=== PATIENT | male | born 1980 | race Caucasian/White ===

== ENCOUNTER → 2019-04-25 | Outpatient (CLI) | payer MEDICAID ==
--- NOTE | 2019-04-26 08:54 | XCELERA REPORT ---
[address] [facility] [address] Lower Extremity Venous Evaluation Procedure: Color flow and duplex imaging bilaterally of the veins of the lower extremities as well as the Common Femoral veins. Right Sided Venous Evaluation Normal vessel filling wall to wall, compression and augmentation as well as Colour flow down to the infrageniculate veins. Left Sided Venous Evaluation Normal vessel filling wall to wall, compression and augmentation as well as Colour flow down to the infrageniculate veins. Interpretation Summary No duplex evidence of DVT or obstruction in the bilateral lower extremities. Name: EULALIA SAUNDERS Age: 39 yrs Gender: Male : 1980 Patient Status: Outpatient Patient Location: Study Date: 04/25/2019 05:44 PM Reason For Study: BLE EDEMA Ordering Physician: JOSE PIERCE Performed By: Anita Ponce : JOSE PIERCE > Jair Delgado
== END ==
LOC: SP 17:32
PROVIDERS: ATTEND Physician Assistant
DX: R60.9 Edema, unspecified (principal)
CPT/HCPCS: 93970

== ENCOUNTER 2020-10-18 11:46 | Emergency (ER) | payer MEDICAID ==
--- NOTE | 2020-10-18 13:19 | ER Document Report ---
ED Medical Screen (RME) - General Chief Complaint: Abdominal Pain Stated Complaint: ABDOMINAL PROBLEM Time Seen by Provider: 10/18/20 13:12 Primary Care Provider: JOSE PIERCE PA-C [Primary Care Provider] - Follow up as needed Mode of Arrival: Ambulatory Information source: Patient Notes: HPI; 40-year-old male presents to the emergency room complaining of left upper quadrant pain that has been intermittent for the past 3 days. Also complains of some fluttering in his chest. Denies any nausea or vomiting. No fevers. No urinary symptoms. States he has taken Pepto-Bismol without relief. On chronic pain medication which is not helping with his symptoms. Denies any cardiac history. PE: Alert and oriented x3. Lungs: Clear to auscultation without rales, rhonchi, wheezes. Heart: Tachycardic without murmurs, rubs, gallops. I have greeted and performed a rapid initial assessment of this patient. A comprehensive ED assessment and evaluation of the patient, analysis of test results and completion of the medical decision making process will be conducted by additional ED providers. I have specifically instructed the patient or family members with the patient to immediately return to any nursing staff should anything change in the patient's condition or with their chief complaint. TRAVEL OUTSIDE OF THE [place] IN LAST 30 DAYS: No - Related Data Allergies/Adverse Reactions: No Known Allergies Allergy (Verified 10/18/20 13:10) Home Medications: oxycodone. tizanidine Physical Exam - Vital signs Vitals: Temp Pulse Resp BP Pulse Ox 98.8 F 113 H 16 146/100 H 99 10/18/20 11:54 10/18/20 11:54 10/18/20 11:54 10/18/20 11:54 10/18/20 11:54 Course - Vital Signs Vital signs: Temp Pulse Resp BP Pulse Ox 98.8 F 113 H 16 146/100 H 99 10/18/20 11:54 10/18/20 11:54 10/18/20 11:54 10/18/20 11:54 10/18/20 11:54 Doctor's Discharge - Discharge Referrals: JOSE PIERCE PA-C [Primary Care Provider] - Follow up as needed
--- NOTE | 2020-10-18 13:49 | RADIOLOGY REPORT (SQ) ---
EXAM DESCRIPTION: CHEST 2 VIEWS IMAGES COMPLETED DATE/TIME: 10/18/2020 1:27 pm REASON FOR STUDY: chest pain COMPARISON: None. EXAM PARAMETERS: NUMBER OF VIEWS: two views TECHNIQUE: Digital Frontal and Lateral radiographic views of the chest acquired. RADIATION DOSE: NA LIMITATIONS: none FINDINGS: LUNGS AND PLEURA: No opacities, masses or pneumothorax. No pleural effusion. MEDIASTINUM AND HILAR STRUCTURES: No masses or contour abnormalities. HEART AND VASCULAR STRUCTURES: Heart normal size. No evidence for failure. BONES: No acute findings. HARDWARE: None in the chest. OTHER: No other significant finding. IMPRESSION: 1. NO ACUTE RADIOGRAPHIC FINDING IN THE CHEST. TECHNICAL DOCUMENTATION: JOB ID: [id number] 2010 [employer]- All Rights Reserved Reading location - IP/workstation name: [email or web address]
[2020-10-18 14:23] LABS: ABSOLUTE BASOPHILS # (AUTO) 0.1 10^3/uL (0.0-0.2); ABSOLUTE EOSINOPHILS # (AUTO) 0.1 10^3/uL (0.0-0.6); ABSOLUTE LYMPHOCYTES (AUTO) 1.5 10^3/uL (0.5-4.7); ABSOLUTE MONOCYTES (AUTO) 0.5 10^3/uL (0.1-1.4); ABSOLUTE NEUT (AUTO) 4.9 10^3/uL (1.7-8.2); BASOPHILS % (AUTO) 0.8 % (0-2); EOSINOPHILS % (AUTO) 1.1 % (0-6); HEMATOCRIT 47.8 % (37.9-51.0); HEMOGLOBIN 15.7 g/dL (13.5-17.0); LYMPHOCYTES % (AUTO) 21.4 % (13-45); MEAN CORPUSCULAR HEMOGLOBIN 27.5 pg (27.0-33.4); MEAN CORPUSCULAR HGB CONC 32.9 g/dL (32.0-36.0); MEAN CORPUSCULAR VOLUME 84 fl (80-97); MONOCYTES % (AUTO) 7.4 % (3-13); PLATELET COUNT 277 10^3/uL (150-450); RED BLOOD COUNT 5.72 10^6/uL (4.35-5.55); RED CELL DISTRIBUTION WIDTH 14.2 % (11.5-14.0); SEGMENTED NEUTROPHILS % (AUTO) 69.3 % (42-78); TOTAL CELLS COUNTED % (AUTO) 100 %; WHITE BLOOD COUNT 7.1 10^3/uL (4.0-10.5)
[2020-10-18 15:02] LABS: ALBUMIN 4.6 g/dL (3.5-5.0); ALKALINE PHOSPHATASE 81 U/L (38-126); ANION GAP 8 (5-19); ASPARTATE AMINO TRANSFERASE 41 U/L (17-59); BILIRUBIN,DIRECT 0.3 mg/dL (0.0-0.4); BILIRUBIN,TOTAL 0.9 mg/dL (0.2-1.3); BLOOD UREA NITROGEN 14 mg/dL (7-20); CALCIUM 9.8 mg/dL (8.4-10.2); CARBON DIOXIDE 28 mmol/L (22-30); CHLORIDE 101 mmol/L (98-107); GLUCOSE 99 mg/dL (75-110); POTASSIUM 5.3 mmol/L (3.6-5.0); TOTAL PROTEIN 7.9 g/dL (6.3-8.2)
[2020-10-18] MEDS ORDERED: LIDOCAINE 2% VISCOUS SOLN 15 ML UDCUP PO ONE (15:21)
[2020-10-18] MEDS ORDERED: MAG HYDROX/AL HYDROX/SIMETH SUSP 30 ML UDCUP PO ONE (15:21)
[2020-10-18] MEDS ORDERED: METOCLOPRAMIDE HCL ORAL SOLN 10 MG/10 ML UDCUP PO ONE (15:21)
--- NOTE | 2020-10-18 15:28 | ER Document Report ---
ED General - General Chief Complaint: Abdominal Pain Stated Complaint: ABDOMINAL PROBLEM Time Seen by Provider: 10/18/20 13:12 Primary Care Provider: JOSE PIERCE PA-C [ALLIED HEALTH PROFESSIONAL] - Follow up as needed Mode of Arrival: Ambulatory Information source: Patient TRAVEL OUTSIDE OF THE [place] IN LAST 30 DAYS: No - HPI Notes: Patient presents the emergency department with a 3-day history of epigastric and left upper quadrant abdominal pain. He describes it as a "fluttering" sensation. It is fairly constant. It is not relieved by eating or antiacids at home although he is not been taking any consistently. It is not aggravated by movement, position, cough, or exertion. He has no associated nausea, hematem esis, or hematochezia. He denies any fever or chills. He denies any urinary symptoms. He denies any dyspnea. Is not travel outside the area. He has not had any exposure to illness that he knows of. He says that he is on oxycodone/acetaminophen, adding, and as needed Advil for his chronic back and knee pain. These are prescribed elsewhere. He has been using the Advil fairly consistently for about the last 4 weeks and has not been using any sort of gastric cytoprotection. He denies any bloating, distention, vomiting, or change in his bowel habits. He is otherwise in his usual state of health. - Related Data Allergies/Adverse Reactions: No Known Allergies Allergy (Verified 10/18/20 13:10) Home Medications: oxycodone. tizanidine Past Medical History - General Information source: Patient - Social History Smoking Status: Current Every Day Smoker Family History: Reviewed & Not Pertinent - Medical History Notes: Past medical history as documented in the E HR is reviewed. Review of Systems - Review of Systems Notes: All other systems are reviewed and are negative or noncontributory except as noted the present illness. Physical Exam - Vital signs Vitals: Temp Pulse Resp BP Pulse Ox 98.8 F 113 H 16 146/100 H 99 10/18/20 11:54 10/18/20 11:54 10/18/20 11:54 10/18/20 11:54 10/18/20 11:54 - Notes Notes: General: Well-developed well-nourished male no acute distress. He was standing up in the room talking on his phone when I entered. Vital signs and nursing documentation are reviewed. HEENT: Grossly normal to inspection. Neck: Supple nontender no adenopathy. Chest: Nontender, lungs clear to auscultation all parham. Heart: Regular rate and rhythm no murmur rub or gallop. Abdomen: Soft, nondistended, active bowel sounds. Tender in the epigastrium and left upper quadrant direct palpation. No guarding. No masses organomegaly or r igidity are noted. Extremities: Without clubbing cyanosis or edema. Skin: Warm moist good turgor no rashes. Neuro: Patient is awake alert fully oriented. No motor or sensory deficits are noted. Course - Re-evaluation Re-evalutation: 10/18/20 15:27 The patient's initial CBC and Rowe panel are entirely normal. His exam is quite benign. His EKG is normal. Given that he is been having pain for 3 days I think the odds of this being any sort of myocardial ischemia in a 40-year-old are essentially 0. Accordingly I have canceled his repeat troponin. Additionally a CT scan of the abdomen and pelvis had been ordered. Given his normal labs and completely benign exam, along with a history of NSAID use, I think that the likelihood of finding anything on CT is essentially nil and so I canceled that as well. I would give him a GI cocktail and if he responds to that my plan is to send him home on both sucralfate and a PPI to follow-up with his primary care provider. 10/18/20 16:41 The patient reports perhaps very slight improvement versus no change with the GI cocktail. He is a somewhat vague historian. He is concerned that perhaps the microbiome of his gut is off. I advised him that that certainly was a possibility but that that was not something that we would deal with in the emergency department. I think the appropriate course of action now is to get him on some acid suppression therapy, stop the NSAIDs, use some sucralfate, and have him follow-up with his primary care provider within the next few days for recheck. All of this was explained to the patient and his questions were answered. - Vital Signs Vital signs: Temp Pulse Resp BP Pulse Ox 98.8 F 113 H 17 132/92 H 99 10/18/20 11:54 10/18/20 11:54 10/18/20 14:01 10/18/20 14:00 10/18/20 14:12 - Laboratory Results Result Diagrams: 10/18/20 14:03 10/18/20 14:03 Laboratory Results Interpreted: 10/18/20 10/18/20 10/18/20 14:03 14:03 15:15 RBC 5.72 H RDW 14.2 H Sodium 136.5 L Potassium 5.3 H Urine Ketones TRACE H Critical Laboratory Results Reviewed: No Critical Results - Radiology Results Critical Radiology Results Reviewed: No Critical Results Discharge - Discharge Clinical Impression: Epigastric abdominal pain Condition: Good Disposition: HOME, SELF-CARE Instructions: Abdominal Pain ([facility]) Additional Instructions: Stop using Advil and all NSAIDs. This means no Motrin, no Aleve, no ibuprofen, and no naproxen. Prescriptions for omeprazole which is an acid suppression medicine, and sucralfate, which is a stomach lining protector, have been sent to your pharmacy. Please pick these up and take them according to label directions. Call for a follow-up with primary care. Tell them you need an ED follow-up and we said you should be seen within 72 hours. Return to the emergency department if your symptoms worsen or if any other c oncerning symptoms develop. Prescriptions: Sucralfate [Carafate 1 gm Tablet] 1 gm PO ACHS #120 tablet Omeprazole 40 mg PO DAILY #30 capsule. Referrals: JOSE PIERCE, [facility] [ALLIED HEALTH PROFESSIONAL] - Follow up as needed
[2020-10-18 15:34] LABS: APPEARANCE,URINE CLEAR; BILIRUBIN,URINE NEGATIVE (NEGATIVE); COLOR,URINE YELLOW; GLUCOSE, URINE NEGATIVE (NEGATIVE); KETONES,URINE TRACE mg/dL (NEGATIVE); LEUKOCYTE ESTERASE,URINE NEGATIVE (NEGATIVE); NITRITE,URINE NEGATIVE (NEGATIVE); PROTEIN,URINE NEGATIVE (NEGATIVE); URINE SPECIFIC GRAVITY 1.023; UROBILINOGEN,URINE NEGATIVE mg/dL (<2.0)
[2020-10-18] MEDS ORDERED: FAMOTIDINE INJ/PF 20 MG/2 ML SDV IV ONE (16:41)
[2020-10-18 17:00] VITALS: BP 131/84
--- NOTE | 2020-10-18 23:35 | EKG REPORT ---
SEVERITY:- ABNORMAL ECG - SINUS RHYTHM LEFT ANTERIOR FASCICULAR BLOCK : Confirmed by: Pedro Luis Jarrett 18-Oct-2020 23:34:19
== END 2020-10-18 17:00 | disposition home or self-care (01) ==
LOC: ER 11:46
DX: R10.13 Epigastric pain (principal); R10.12 Left upper quadrant pain; F17.200 Nicotine dependence, unspecified, uncomplicated; G89.29 Other chronic pain; Z79.891 Long term (current) use of opiate analgesic
CPT/HCPCS: 93005; 99285; 96374; 36415; 83690; 85025; 80053; 81001; 84484; 71046; 93010; J3490 ×3; S0028